=== PATIENT | male | born 1975 | race Caucasian/White ===

== ENCOUNTER 2018-09-17 21:13 | Emergency (ER) | payer OTHER ==
[~2018-09-17] VITALS: Ht 188 cm; Wt 88.0 kg
[2018-09-17 21:20] VITALS: BP 138/81
[2018-09-17] MEDS ORDERED: LIDOCAINE-MPF 1%, 5ML ONE (21:35)
[2018-09-17] MEDS ORDERED: DIPH,PERTUSS(ACELL),TET VAC/PF 0.5 ML IM-VACC ONE ×2 (21:35→22:00)
[2018-09-17] MEDS ORDERED: ANTIDEPRESSANT (21:36)
--- NOTE | 2018-09-17 21:53 | NUR ---
PT MEDICATED PER MAR
[2018-09-17] MEDS ORDERED: LIDOCAINE 1%, 10ML INFIL ONE (22:00)
[2018-09-17] MEDS ORDERED: BACITRACIN ZINC OINT 500U/GM, 0.9 GM ONE (22:04)
== END 2018-09-17 22:41 | disposition home or self-care (01) ==
LOC: ED 22:15
DX: S62.637B Displaced fracture of distal phalanx of left little finger, initial encounter for open fracture (principal); S61.217A Laceration without foreign body of left little finger without damage to nail, initial encounter; W23.0XXA Caught, crushed, jammed, or pinched between moving objects, initial encounter; Y93.89 Activity, other specified; Y92.009 Unspecified place in unspecified non-institutional (private) residence as the place of occurrence of the external cause; Y99.8 Other external cause status
CPT/HCPCS: 12042; 90471; 90715